=== PATIENT | female | born 1975 | race Caucasian/White ===

== ENCOUNTER 2016-10-14 01:02 | Inpatient (IN) ==
[2016-10-14] MEDS ORDERED: ONDANSETRON 4 MG/2 ML VIAL IV STA (01:54)
[2016-10-14] MEDS ORDERED: SODIUM CHLORIDE 0.9% 500 ML IV STA (01:54)
[2016-10-14] MEDS ORDERED: MORPHINE 2 MG/1 ML SYRINGE IV STA (01:54)
[2016-10-14 02:03] LABS: Basophils # 0.1 10*3/uL (0.0-0.2); Basophils % 0.7 % (0.0-0.8); Eosinophils # 0.6 10*3/uL (0.0-0.87); Eosinophils % 6.8 % (0.00-10.9); Hematocrit 39.3 VOL% (35.7-47.0); Hemoglobin 13.2 GM/DL (12.0-16.0); Immature Granulocytes % 0.4 %; Immature Granulocytes Absolute 0.04 #; Lymphocytes # 4.2 10*3/uL (1.4-4.0); Mean Corpuscular HGB Conc 33.6 GM/DL (32-36); Mean Corpuscular Hemoglobin 28 PG (27-34); Mean Corpuscular Volume 81.9 FL (87-102); Monocytes # 0.6 10*3/uL (0.11-0.8); Monocytes % 6.4 % (1.7-12.7); Neutrophils # 3.5 10*3/uL (1.4-7.4); Neutrophils % 38.7 % (38.7-73.9); Platelet Count 271 T/CUMM (130-400); Red Cell Distribution Width 13.7 % (9.3-17.3)
[2016-10-14] MEDS ORDERED: ONDANSETRON 4 MG/2 ML VIAL ONE ×2 (02:11→12:55)
[2016-10-14] MEDS ORDERED: MORPHINE 2 MG/1 ML SYRINGE ONE (02:11)
[2016-10-14 02:14] LABS: Calcium 9.1 MG/DL (8.5-10.1); Osmolality,Calculated 281.1 MOS/KG (273-304); Potassium 3.9 MMOL/L (3.5-5.1)
--- NOTE | 2016-10-14 02:17 | Emergency Department Note ---
Silvia English Hilary, am scribing for, and in the presence of, Gennaro Chen MD 01:58. Gustavo English Robert M, MD, personally performed the services described in this documentation, ascribed by Chiqui Vega in my presence, and it is both accurate and complete . Arrival - Arrival Chief Complaint: Abdominal / Flank Pain Stated Complaint: gallstones ED Nursing Triage Note: C/O Upper abd pain worsening tonight. Pt reports that she was told she has gallstones lastnight, but the pain has become constant and worse than it was when she was seen in ER last. Pt is crying at time of triage. Reports taking norco without any relief. +nausea/vomiting. Mode of Arrival: Ambulatory Limitations: No Limitations Source: Patient, RN Notes Reviewed - History of Present Illness HPI Narrative: Pt is a 41 y/o white female presenting to the ED with c/o abdominal pain which onset yesterday. Pt states she was in the ED yesterday for the same symptoms, they took xrays and ultrasounds and found that she had gallstones. She was scheduled to come back today for tests but her insurance wanted preauthorizations so she had to reschedule, but the pain has worsened. Pt confirms fever (101), nausea, abdominal pain and vomiting. No other complaints or problems stated in the ED. Onset (ago): day(s) Consistency: constant Date of Last Menstrual Period: Hysterectomy Allergies/Adverse Reactions: Allergies Allergy/AdvReac Type Severity Reaction Status Date / Time ketorolac [From Toradol] Allergy Swelling Verified 10/12/16 10:58 of Lip/Tongue/Throat naproxen Allergy Swelling Verified 10/12/16 10:58 of Lip/Tongue/Throat Home Medications: Home Medications Medication Instructions Recorded Confirmed Type Esomeprazole Magnesium [Nexium] 40 mg PO DAILY 07/21/16 10/14/16 History HYDROcodone/ACETAMIN 10-325 [[place] 1 tablet PO QID 07/21/16 10/14/16 History 10-325] Albuterol Inhaler [Proventil 2 puff INH Q4H PRN #1 inhaler 07/22/16 10/14/16 Rx Inhaler] ALPRAZolam [Alprazolam] 0.5 mg PO Q6H PRN 10/12/16 10/14/16 History fentaNYL [Fentanyl 50 mcg/hr Patch] 1 patch TOP Q72H 10/12/16 10/14/16 History Review of System - Review of System 12 point system: reviewed and no additional remarkable complaints except as stated - Review of System Constitutional: Present: fever (101) Cardiovascular: Absent: chest pain Gastrointestinal: Present: abdominal pain, nausea, vomiting Medical,Surgical,& Family Hx - Medical History Cardio: History of: Hypertension Musculoskeletal: History of: Musculoskeletal Problems (takes norco for chronic pain) - Surgical History Abdominal Surgeries: Patient denies: Appendectomy - Social History Smoking Status: Never smoker Frequency of Alcohol Use: None Type of Drug Use: None Exam Vital Signs: Vital Signs Temperature 98.8 F 10/14/16 01:17 Pulse Rate 88 10/14/16 01:17 Respiratory Rate 20 10/14/16 01:17 Blood Pressure 144/92 10/14/16 01:17 O2 Sat by Pulse Oximetry 100 10/14/16 01:06 - General General appearance: alert, in no apparent distress - Head Head exam: Present: atraumatic, normocephalic - Eye Eye exam: Present: normal appearance, PERRL, EOMI - ENT ENT exam: Present: mucous membranes moist, TM's normal bilaterally. Absent: mucous membranes dry - Neck Neck exam: Present: full ROM, trachea midline. Absent: tenderness - Chest Chest inspection: Present: symmetric chest wall rise. Absent: tenderness - Respiratory Respiratory exam: Present: normal lung sounds bilaterally. Absent: respiratory distress - Cardiovascular Cardiovascular exam: Present: regular rate, normal rhythm, normal heart sounds. Absent: murmur, rubs, gallop - Abdominal Exam Abdominal exam: Present: soft, normal bowel sounds. Absent: distention, tenderness - Extremities Exam Extremities exam: Present: full ROM. Absent: tenderness - Back Exam Back exam: Present: full ROM. Absent: tenderness - Neurological Exam Neurological exam: Present: alert, oriented X3, CN II-XII intact. Absent: motor sensory deficit - Psychiatric Psychiatric exam: Present: normal affect, normal mood - Skin Skin exam: Present: warm, dry, intact, normal color. Absent: rash Course - Consultations Consultation #1: Dr. Henry will admit the patient. Time: 02:53 Results - Labs CBC & BMP: 10/14/16 01:29 10/14/16 01:29 Lab Results: I have reviewed the patients labs Disposition Clinical Impression: Biliary colic Case discussed with: patient Disposition: Still a Patient Condition: Stable Time of Disposition: 02:53
[2016-10-14] MEDS ORDERED: ONDANSETRON 4 MG/2 ML VIAL IV PRN ×2 (02:54→15:17)
[2016-10-14] MEDS ORDERED: HYDROmorphone 2 MG/1 ML VIAL IV PRN (02:54)
[2016-10-14] MEDS ORDERED: LACTATED RINGERS 1,000 ML IV SCH (03:00)
[2016-10-14] MEDS: AMPICILLIN/SULBACTAM 3,000 MG in SODIUM CHLORIDE 0.9% 100 ML IV SCH ×4 (06:30→23:16)
[2016-10-14 07:41] LABS: Basophils # 0.1 10*3/uL (0.0-0.2); Basophils % 0.6 % (0.0-0.8); Eosinophils # 0.6 10*3/uL (0.0-0.87); Eosinophils % 6.7 % (0.00-10.9); Hematocrit 34.9 VOL% (35.7-47.0); Hemoglobin 11.8 GM/DL (12.0-16.0); Immature Granulocytes % 0.4 %; Immature Granulocytes Absolute 0.03 #; Lymphocytes # 3.8 10*3/uL (1.4-4.0); Lymphocytes % 45.4 % (21.3-54.2); Mean Corpuscular HGB Conc 33.8 GM/DL (32-36); Mean Corpuscular Hemoglobin 28 PG (27-34); Mean Corpuscular Volume 82.3 FL (87-102); Mean Platelet Volume 11.1 FL (9.6-12.0); Monocytes # 0.6 10*3/uL (0.11-0.8); Monocytes % 6.6 % (1.7-12.7); Neutrophils # 3.4 10*3/uL (1.4-7.4); Neutrophils % 40.3 % (38.7-73.9); Platelet Count 248 T/CUMM (130-400); Red Blood Count 4.24 MC/CUMM (3.8-5.5); Red Cell Distribution Width 13.9 % (9.3-17.3); White Blood Count 8.4 T/CUMM (4-12)
[2016-10-14 08:00] LABS: Alanine Aminotransferase 19 U/L (13-56); Albumin 3.4 G/DL (3.4-5.0); Alkaline Phosphatase 77 U/L (45-117); Amylase 15 U/L (25-115); Aspartate Amino Transferase 14 U/L (0-37); Bilirubin,Total < 0.39 MG/DL (0.2-1.0); Blood Urea Nitrogen 10 MG/DL (7-18); Calcium 8.9 MG/DL (8.5-10.1); Glucose 90 MG/DL (74-106); Osmolality,Calculated 281.1 MOS/KG (273-304); Potassium 3.8 MMOL/L (3.5-5.1); Sodium 142 MMOL/L (136-145)
--- NOTE | 2016-10-14 09:11 | EKG Report ---
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
--- NOTE | 2016-10-14 09:19 | Nuclear Medicine Report ---
History: Right upper quadrant abdominal pain. Cholelithiasis Date: 10/14/2016 Study: Nuclear medicine hepatobiliary scan with gallbladder ejection fraction Comparison exam: No similar study for comparison Following the IV administration of 5 mCi technetium 99m Choletec, there is homogeneous uptake of the radiotracer by the liver. There is gallbladder visualization at 10 minutes. There is duodenal visualization at 25 minutes. Following 60 minutes of dynamic imaging, gallbladder ejection fraction was measured for 60 minutes after the ingestion of 8 ounces of ensure. The patient reports some nausea and cramping with ingestion of ensure. The gallbladder ejection fraction measures 24% which is abnormally low. Impression: Abnormally low gallbladder ejection fraction of 24%. Otherwise normal study PROCEDURE INTERPRETED AT [facility] DEPARTMENT OF RADIOLOGY Final Report Signed by: Dr. Litzy Paulson
--- NOTE | 2016-10-14 09:22 | XRay Report ---
XR chest 2V Date: 10/14/2016 4:49 AM History: Respiratory preoperative evaluation Comparison: 07/21/2016 Technique: PA and lateral chest Findings: The heart is normal in size. The lungs are clear and unremarkable mediastinum. Minimal degenerative changes. Impression: No acute cardiopulmonary pathology identified. PROCEDURE INTERPRETED AT [facility] DEPARTMENT OF RADIOLOGY Final Report Signed by: Dr. Sofía Vela
--- NOTE | 2016-10-14 09:59 | General Surg History&Physical ---
Assessment and Plan - Time spent with patient Time spent with patient: Greater than 30 minutes (1) RUQ abdominal pain Status: Acute Assessment and plan: Impression: 1.Right upper quadrant abdominal pain secondary to cholecystitis cholelithiasis. 2. History of peptic ulcer disease 3. Status post hysterectomy and oophorectomy 4. Family history of mother with ovarian cancer 5. Some rectal bleeding related to constipation probably secondary to fissure Plan: Because of the patient's history of this right upper quadrant pain in the recurrent nature of it and the positives D of her test I think is best to go ahead with the cholecystectomy at this time. Her history of upper GI ulcers and lower GI bleed can be evaluated later probably is under control since she has been treated recently. Family history ovarian cancer even though she has had her ovaries removed she probably needs consideration of genetic testing in early mammography. Current Visit: No History of Present Illness Chief complaint: Recurrent abdominal pain primarily right upper quadrant. History of present illness: Ms. Lewis is a 41 year old female white who returned to the emergency room last night because of recurrent abdominal pain primarily epigastric in nature with some radiation to her back. She was in the emergency room the day before was found to have on ultrasound stones in the gallbladder and a negative CT scan for any stones in the kidney. She apparently was sent out with the possibility of coming back for a HIDA scan. Unfortunately she returned last night with another episode of pain and discomfort and it did same by her history that he came on after eating some fried foods. She denies this problem long-term but certainly this recent episode seems to have brought that home. She is admitted because her temp was up and she was put on some IV antibiotics and did get a HIDA scan today that is abnormal with an abnormal ejection fraction and seem to reproduce her pain. She has a complicated history of some ulcer problems in the stomach that has been identified 4 months ago with the scope at [place]. She describes some bleeding from her rectal area that probably is related to constipation and occurs following no bowel movements. Her liver function studies have been normal and since she seems to be under so much discomfort I think is best to go ahead and get the gallbladder out at this time so that she can be recovering from this and if we need to do any other thing on her GI tract we can do that later. Patient has a history of a mother that with ovarian cancer. She apparently an 8 has had a hysterectomy with ovaries removed. She has had no genetic testing in the past this time and has not had any recent mammograms. Home Medications Medication Instructions Recorded Confirmed Type Esomeprazole Magnesium [Nexium] 40 mg PO DAILY 07/21/16 10/14/16 History HYDROcodone/ACETAMIN 10-325 [[place] 1 tablet PO QID 07/21/16 10/14/16 History 10-325] Albuterol Inhaler [Proventil 2 puff INH Q4H PRN #1 inhaler 07/22/16 10/14/16 Rx Inhaler] ALPRAZolam [Alprazolam] 0.5 mg PO Q6H PRN 10/12/16 10/14/16 History fentaNYL [Fentanyl 50 mcg/hr Patch] 1 patch TOP Q72H 10/12/16 10/14/16 History Allergies Allergy/AdvReac Type Severity Reaction Status Date / Time ketorolac [From Toradol] Allergy Swelling Verified 10/12/16 10:58 of Lip/Tongue/Throat naproxen Allergy Swelling Verified 10/12/16 10:58 of Lip/Tongue/Throat Medical,Surgical,& Family Hx - Medical History Cardio: History of: Hypertension Neurology: No history of: Brain Aneurysm, Cerebral Hemorrhage, Cerebrovascular Accident , Cerebral Palsy, Dementia, Migraine, Multiple Sclerosis, Parkinson's Disease, Peripheral Neuropathy, Seizures, TIA, Vertigo, Neurologocal Cancer Respiratory: No history of: Respiratory Problems Musculoskeletal: History of: Musculoskeletal Problems (takes norco for chronic pain) - Surgical History Thoracic Surgeries: Patient denies;: Lobectomy Neurologic Surgeries: Patient denies: Brain Aneurysm, Cerebral Hemorrhage, Neurologic Surgery Abdominal Surgeries: Surgical HX of: Hernia Repair (2013) Patient denies: Appendectomy Reproductive Surgeries: Surgical HX of;: Hysterectomy (2005) - Family History Family History: Reports;: Family Cancer (mother had ovarian and pancreatic cancer), Family Heart Disease (father), Family Hypertension - Social History Smoking Status: Never smoker Frequency of Alcohol Use: None Type of Drug Use: None Exam - Constitutional Vitals: Period Temp Pulse Resp BP Sys/Araujo Pulse Ox Last 24 Hr 97.0 F-97.1 F 77-79 16-18 121-169/73-94 97-100 General appearance: mild distress - Head Head exam: Present: normal inspection - ENT ENT exam: Present: normal exam - Neck Neck exam: Present: normal inspection - Respiratory Respiratory exam: Present: clear to auscultation bilaterally, rales - Cardiovascular Cardiovascular exam: Present: RRR - GI/Abdominal GI/Abdominal exam: Present: hypoactive bowel sounds, Bloom's sign, tenderness ( Right upper quadrant), soft. Absent: distended - Extremities Exam Extremities exam: Present: normal inspection - Back Exam Back exam: Present: normal inspection - Neurological Exam Neurological exam: Present: alert, oriented X3, CN II-XII intact - Skin Skin exam: Present: normal color, warm, dry 12 point system: reviewed and no additional remarkable complaints except as stated Results - Labs CBC & BMP: 10/14/16 05:25 10/14/16 05:25 Lab Results: I have reviewed the past 24 hour labs - Diagnostic Findings Procedure: CT Abdomen and Pelvis: report reviewed by me (Negative), Ultrasound: report reviewed by me (Positive for stone), X-ray: other (HIDA scan positive)
[2016-10-14] MEDS ORDERED: ceFAZolin 2,000 MG in PREMIX 1 EACH IV ONE (10:06)
[2016-10-14] MEDS ORDERED: PANTOPRAZOLE 40 MG TABLET PO ONE (10:21)
[2016-10-14] MEDS ORDERED: DIAZEPAM 5 MG TABLET PO ONE (10:21)
[2016-10-14] MEDS ORDERED: BUPIVACAINE MPF 0.25% /EPI 30 ML VIAL ONE (11:54)
[2016-10-14] MEDS: LACTATED RINGERS 1,000 ML IV SCH ×2 (12:11→14:00)
[2016-10-14] MEDS ORDERED: GLYCOPYRROLATE 0.4 MG/2 ML VIAL ONE (12:55)
[2016-10-14] MEDS ORDERED: NEOSTIGMINE 10 MG/10 ML VIAL ONE (12:55)
[2016-10-14] MEDS ORDERED: LIDOCAINE 2% 5 ML VIAL ONE (12:55)
[2016-10-14] MEDS ORDERED: LABETALOL 100 MG/20 ML VIAL IV ONE (12:55)
[2016-10-14] MEDS ORDERED: ROCURONIUM 100 MG/10 ML VIAL IV ONE (12:55)
[2016-10-14] MEDS ORDERED: hydrALAZINE 20 MG/1 ML VIAL ONE (12:55)
[2016-10-14] MEDS ORDERED: PROPOFOL 200 MG/20 ML VIAL IV ONE (12:55)
[2016-10-14] MEDS ORDERED: SUCCINYLCHOLINE 200 MG/10 ML VIAL ONE (12:55)
[2016-10-14] MEDS ORDERED: SEVOFLURANE 1 UNIT/15 MINUTE INH ONE (14:46)
[2016-10-14] MEDS ORDERED: LACTATED RINGERS 1,000 ML IV ONE (14:47)
[2016-10-14] MEDS ORDERED: MIDAZOLAM 2 MG/2 ML VIAL ONE (14:47)
[2016-10-14] MEDS ORDERED: fentaNYL 100 MCG/2 ML VIAL ONE (14:47)
--- NOTE | 2016-10-14 14:53 | Operative Note ---
Date of procedure: 10/14/16 Pre-op diagnosis: Cholecystitis with cholelithiasis Post-op diagnosis: same Procedure: Operative note: Preoperative diagnosis: Cholecystitis with cholelithiasis. Postoperative diagnosis: Same Procedure: Laparoscopic cholecystectomy with intraoperative cholangiogram. Surgeon Dr. Henry Spin Table Operator Anne Noble, FISHER SPONGE HOOKING ACNP Brief history: 41-year-old white female who has had some episodes of some recurrent abdominal pain primarily epigastric in nature. She was seen in emergency room yesterday where they found that she had gallstones but she was not admitted at that time. She came back because she was worse early this morning which time she had a HIDA scan to confirm she had chronic gallbladder disease with stones present. Because of her complaint of consistent pain and the fact that she had a little bit of fever last night we like to go ahead and bring her in and get the gallbladder out. Procedure: With patient in the supine position prepped and draped in sterile fashion we approach this area the umbilicus. She is a large obese lady we made an incision in this area just below the umbilicus found deep difficult dissection due to the amount of fat that seen in this area. We did finally get to the fascia. Once we got to the fascia we made incision of the fascia tried elevated up but I could not effectively enter the peritoneal cavity comfortably. At that point time I took a varies needle and popped it in with good flow with a saline into the abdomen. That allowed us to insufflate the abdomen with 3 L of CO2. Once I was then I was able to get the 11 mm trocar in without difficulty. We then put the scope and begin to look around large amount of omental fat in the abdomen at this time liver looked a little fatty changes are also. No adhesions in the upper part of the abdomen. At that point we placed a 5 mm trocar and at the anterior axillary midclavicular line under direct vision. Then we placed another 11 mm trocar and at the epigastric port. We then put the patient in upright and tilted to the left side position. Once in a position we lifted up the liver could see the gallbladder with adhesions on the underside of it and it was gone a pale palma in nature. It was not unusually distended but we was able to grasp it at the fundus elevated up and then begin to dissected the omental adhesions free from the underside of the gallbladder. We elevated the gallbladder to we get to the infundibulum portion and we grasped that with a grasper and elevated that up. With careful dissection we were able to identify the cystic duct and isolated proximally with a clip. I then made an incision and cystic duct placed a cholangiocatheter into the cystic duct and clipped it in place. We then brought the C arm up at this time and did several x-rays as we injected. We had good flow into the duodenum with no stones present upper radicles did not feel as well as we wanted. This ended up showing a long cystic duct that was coming into the common duct on the medial aspect of it then the standard lateral part. Once that was confirmed that everything looked good there we pulled the Cholangiocath and placed 3 clips across the distal part of the cystic duct and divided that. Then with careful dissection identified the cystic artery and placed 3 clips on it proximally 1 distally and divided it. We then began his toe slow steady dissection of the gallbladder out by incising the peritoneal attachments using sharp and blunt dissection with electrocauterization as we dissected the gallbladder from the liver bed. Once a gallbladder was free we placed an Endo Catch bag and with some difficulty was able to bring it out through the umbilicus site. Once a gallbladder that we went back in washed irrigated touch several areas in the liver bed irrigated the bleeding under control. I looked fairly dry we just cleaned out fluid from the abdomen at this time above and below the liver. With that completed and no unusual bleeding seen we pulled our ports went back to the umbilical port where we closed the fascia down with interrupted 0 Monocryl suture. Once that was completely closed down we washed out the subtenons tissue closed with 30 Vicryl Close the skin and all ports with running 4-0 Monocryl Dermabond was applied. Patient then was taken recovery room in stable satisfactory condition sponge count was correct. Estimated blood loss about 30 cc Sponge count correct 2 Drains none Complications none Condition stable satisfactory Anesthesia: GETA, local (0.25% Marcaine with epinephrine mixed [id number] 1% Xylocaine plain) Surgeon / Physician: Gennaro Henry Spin Table Operator: Anne Noble Estimated blood loss: other (30 cc) Specimens: other (Gallbladder) Condition: stable Disposition: floor Results - Labs CBC & BMP: 10/14/16 05:25 10/14/16 05:25 Discharge Plan - Discharge Medications No Action ALPRAZolam [Alprazolam] 0.5 mg PO Q6H PRN PRN Reason: Anxiety HYDROcodone/ACETAMIN 10-325 [[place] 10-325] 1 tablet PO QID Esomeprazole Magnesium [Nexium] 40 mg PO DAILY Albuterol Inhaler [Proventil Inhaler] 2 puff INH Q4H PRN #1 inhaler PRN Reason: Shortness Of Breath/Wheezing fentaNYL [Fentanyl 50 mcg/hr Patch] 1 patch TOP Q72H - Follow Up or Referral - Forms/Instructions
[2016-10-14] MEDS ORDERED: BISACODYL 5 MG TABLET PO PRN (14:54)
[2016-10-14] MEDS ORDERED: TISSUE ADHESIVE 1 EACH APPLICATOR TOP ONE (14:56)
[2016-10-14] MEDS: HYDROmorphone 2 MG/1 ML VIAL IV PRN ×4 (15:15→20:32)
[2016-10-14] MEDS ORDERED: SCOPOLAMINE 1.5 MG PATCH TRANSDERM ONE ×2 (16:02→16:05)
[2016-10-14] MEDS ORDERED: ALBUTEROL 2.5 MG/3 ML NEB RESP TX PRN (16:59)
[2016-10-14] MEDS ORDERED: ALPRAZolam 0.5 MG TABLET PO PRN (16:59)
[2016-10-14] MEDS: PANTOPRAZOLE 40 MG TABLET PO SCH (17:24)
[2016-10-14] MEDS: ONDANSETRON 4 MG/2 ML VIAL IV PRN (19:15)
[2016-10-14] MEDS: DOCUSATE SODIUM 100 MG CAPSULE PO SCH (20:34)
[2016-10-14] MEDS: DEXTROSE 5% NACL 0.45% 1,000 ML IV SCH ×3 (20:35→23:00)
[2016-10-14] MEDS: ceFAZolin 2,000 MG in PREMIX 1 EACH IV SCH (20:36)
--- NOTE | 2016-10-14 20:41 | Fluoroscopy Report ---
[place] cholangiogram in surgery Indication: Abdominal pain. Cholecystectomy. Comparison: None. Technique: Injection of the cystic duct using intravenous contrast was performed intraoperatively. Multiple fluoroscopic images were then captured and stored. Total fluoroscopy time was 38.6 seconds. Findings: Size of the extrahepatic bile duct appears enlarged without distinct filling defect. There is a possible stricture involving the termination of the duct with a segment measuring approximately 12 to 13 mm present. Turbulent flow of contrast is noted across this segment of the duct. Impression: 1. No intraluminal filling defects are present. 2. Stricture involving the distal duct is not excluded. 10/14/2016 8:35 PM PROCEDURE INTERPRETED AT [facility] DEPARTMENT OF RADIOLOGY Final Report Signed by: Dr. Jorge Chen
[2016-10-14] MEDS: ACETAMINOPHEN 325 MG TABLET PO PRN (21:37)
[2016-10-14 22:22] LABS: Hematocrit 36.5 VOL% (35.7-47.0); Hemoglobin 12.4 GM/DL (12.0-16.0)
[2016-10-15] MEDS: HYDROmorphone 2 MG/1 ML VIAL IV PRN ×9 (00:37→23:17)
[2016-10-15] MEDS: ONDANSETRON 4 MG/2 ML VIAL IV PRN ×5 (00:38→23:17)
[2016-10-15] MEDS: ceFAZolin 2,000 MG in PREMIX 1 EACH IV SCH (04:16)
[2016-10-15 04:25] LABS: Basophils % 0.2 % (0.0-0.8); Eosinophils % 0.2 % (0.00-10.9); Hematocrit 38.2 VOL% (35.7-47.0); Hemoglobin 12.8 GM/DL (12.0-16.0); Immature Granulocytes % 0.5 %; Immature Granulocytes Absolute 0.06 #; Lymphocytes # 1.9 10*3/uL (1.4-4.0); Lymphocytes % 15.1 % (21.3-54.2); Mean Corpuscular HGB Conc 33.5 GM/DL (32-36); Mean Corpuscular Hemoglobin 27 PG (27-34); Mean Corpuscular Volume 81.8 FL (87-102); Mean Platelet Volume 10.7 FL (9.6-12.0); Monocytes # 0.6 10*3/uL (0.11-0.8); Monocytes % 4.6 % (1.7-12.7); Neutrophils # 10.1 10*3/uL (1.4-7.4); Neutrophils % 79.4 % (38.7-73.9); Platelet Count 272 T/CUMM (130-400); Red Blood Count 4.67 MC/CUMM (3.8-5.5); White Blood Count 12.8 T/CUMM (4-12)
[2016-10-15 04:58] LABS: Albumin 3.4 G/DL (3.4-5.0); Bilirubin,Total 1.1 MG/DL (0.2-1.0); Calcium 8.8 MG/DL (8.5-10.1); Osmolality,Calculated 280.3 MOS/KG (273-304); Potassium 4.1 MMOL/L (3.5-5.1); Total Protein 6.5 G/DL (6.4-8.3)
[2016-10-15] MEDS: AMPICILLIN/SULBACTAM 3,000 MG in SODIUM CHLORIDE 0.9% 100 ML IV SCH ×4 (05:54→23:20)
[2016-10-15] MEDS: DEXTROSE 5% NACL 0.45% 1,000 ML IV SCH ×2 (09:07→20:29)
[2016-10-15] MEDS: DOCUSATE SODIUM 100 MG CAPSULE PO SCH ×2 (10:42→20:29)
[2016-10-15] MEDS: PANTOPRAZOLE 40 MG TABLET PO SCH (10:42)
[2016-10-15] MEDS: ENOXAPARIN 40 MG/0.4 ML SYRINGE SUBCUT SCH (10:42)
--- NOTE | 2016-10-15 11:19 | Event Note ---
General Surgery Progress Note Chief complaint This patient is a 41-year-old woman with morbid obesity admitted with cholecystitis treated with laparoscopic cholecystectomy by Dr. Henry on 10/14/2016 Interval history No events overnight. Patient is still nauseated having some abdominal pain on the left side of her abdomen. Labs are unremarkable today. She has not gotten up and walked it. Nausea is responding to antiemetics Physical exam Afebrile with low-grade tachycardia. Chest is clear Heart is regular but tachycardic Abdomen with expected postoperative tenderness. Hypoactive bowel sounds. Labs Reviewed, as above Imaging None new Assessment and plan Continue IV fluids and antiemetics with pain medication. I have encouraged the patient to get up and walk in the hallway today. Continue diet as tolerated. Possible discharge home tomorrow.
--- NOTE | 2016-10-15 11:35 | Anesthesia Post-Op ---
Anesthesia Post OP - Post Ansesthetic Evaluation Patient seen in post op: Yes Resp: within normal limits CV: within normal limits Mental: within normal limits Temp: within normal limits [id number]: within normal limits Nausea and Vomiting: within normal limits Pain: within normal limits
[2016-10-16] MEDS: HYDROmorphone 2 MG/1 ML VIAL IV PRN ×2 (04:31→08:15)
[2016-10-16] MEDS: AMPICILLIN/SULBACTAM 3,000 MG in SODIUM CHLORIDE 0.9% 100 ML IV SCH (05:25)
[2016-10-16] MEDS: ACETAMINOPHEN 325 MG TABLET PO PRN (05:37)
[2016-10-16] MEDS: DEXTROSE 5% NACL 0.45% 1,000 ML IV SCH (06:50)
[2016-10-16] MEDS: ONDANSETRON 4 MG/2 ML VIAL IV PRN ×2 (08:20→13:32)
[2016-10-16] MEDS: ENOXAPARIN 40 MG/0.4 ML SYRINGE SUBCUT SCH (08:23)
[2016-10-16] MEDS: DOCUSATE SODIUM 100 MG CAPSULE PO SCH (08:23)
[2016-10-16] MEDS: PANTOPRAZOLE 40 MG TABLET PO SCH (08:23)
--- NOTE | 2016-10-16 09:08 | Discharge Summary ---
Hospital Course - Hospital Course Hospital Course: The patient was admitted with cholecystitis and treated with laparoscopic cholecystectomy by Dr. Henry. She recovered well but had a little bit of nausea and abdominal pain postop day 1. She was kept an extra night and was doing well on the day of discharge. She still has some nausea but it was much better controlled and she was able to tolerate liquids without any nausea or vomiting. She was discharged home with oral dissolvable Zofran and prescription for Percocet. Discharge Plan - Discharge Data Disposition: Disch To Home/Self Care Condition at Discharge: Stable Discharge Diet: advance to your usual diet Activity: no lifting Hygiene: may shower Weight Bearing at Discharge: full weight bearing Driving: not until seen by doctor Contact your physician if you experience:: fever over 101, Difficulty voiding, Redness or swelling, Nausea/Vomiting, Shortness of breath, Bleeding, pain uncontrolled by pain medications Wound / Dressing Care Instructions: It is okay to shower. Do not scrub the incision aggressively or submerge it under water. - Discharge Medications New Oxycodone HCl/Acetaminophen [Percocet 10-325 mg Tablet] 1 each PO Q6H PRN # 30 tablet PRN Reason: Abdominal Pain Ondansetron Odt Tab [Zofran Odt] 4 mg PO Q4H PRN #20 tablet PRN Reason: Nausea Continue ALPRAZolam [Alprazolam] 0.5 mg PO Q6H PRN PRN Reason: Anxiety Zolpidem Tartrate [Ambien] 10 mg PO BEDTIME Esomeprazole Magnesium [Nexium] 40 mg PO DAILY Discontinued HYDROcodone/ACETAMIN 10-325 [[place] 10-325] 1 tablet PO DAILY - Follow Up or Referral Follow Up: Gennaro Henry MD [Physician] - 2 Weeks - Forms/Instructions Exam - Constitutional Vitals: Period Temp Pulse Resp BP Sys/Araujo Pulse Ox Last 24 Hr 97.4 F-98.6 F 66-92 17-20 118-146/72-93 95-98 General appearance: no acute distress, morbidly obese - Head Head exam: Present: normal inspection, normocephalic - Eye Eye exam: Present: EOMI Pupils: Present: NA - ENT ENT exam: Present: normal exam - Neck Neck exam: Present: normal inspection - Respiratory Respiratory exam: Present: clear to auscultation bilaterally. Absent: accessory muscle use, chest wall tenderness - Cardiovascular Cardiovascular exam: Present: regular rate and rhythm. Absent: systolic murmur , tachycardia - GI/Abdominal GI/Abdominal exam: Present: normal bowel sounds, tenderness (expected post-op tenderness), soft, other (The incisions are clean a small amount of bruising but no redness or drainage) - Extremities Exam Extremities exam: Present: normal inspection, normal capillary refill - Back Exam Back exam: Present: normal inspection - Neurological Exam Neurological exam: Present: alert, oriented X3 - Psychiatric Psychiatric exam: Present: normal affect, normal mood - Skin Skin exam: Present: normal color, warm DS: Provider Date of admission: 10/14/16 02:54 Primary care physician: . No PCP Attending physician on admission: Gennaro Henry MD Consults: 10/14/16 10:07 Consult to Anesthesiology [CONS] Routine Consulting Provider: Reason for Anesthesiology: Pre-op Clearance Consult Comment: cholecystectomy Discharging clinician: Girma Barger MD Expected date of discharge: 10/16/16
[2016-10-16] MEDS ORDERED: oxyCODONE/ACETAMINOPHEN 5-325 MG TABLET PO ONE (09:09)
[2016-10-16 11:19] VITALS: BP 108/73
== END 2016-10-16 14:18 | disposition home or self-care (01) | DRG 263 ==
LOC: N.ED 01:02 → N.EDINP 02:54 → N.3E 05:09
PROVIDERS: ADMIT Specialist; ATTEND Specialist
PROC: LAPCHOL (2016-10-14 12:55)